=== PATIENT | male | born 1985 | race Caucasian/White ===

== ENCOUNTER 2025-02-14 20:54 | Emergency (ER) | payer SELFPAY ==
[2025-02-14] MEDS ORDERED: predniSONE 20 MG TAB ONE (21:21)
[2025-02-14] MEDS ORDERED: Azithromycin 250 MG TAB ONE (22:39)
[2025-02-14] MEDS ORDERED: Guaifenesin DM 100-10/5 ML UDCUP ONE (22:40)
== END 2025-02-14 22:47 | disposition home or self-care (01) ==
LOC: BURERS 20:54
DX: J20.9 Acute bronchitis, unspecified (principal); J02.9 Acute pharyngitis, unspecified
CPT/HCPCS: 71046; J7512; J7620

== ENCOUNTER 2025-06-30 12:45 | Emergency (ER) | payer SELFPAY ==
[2025-06-30] MEDS ORDERED: Sulfameth/Trimethoprim DS 800-160mg TAB ONE ×2 (13:28→13:29)
== END 2025-06-30 13:32 | disposition home or self-care (01) ==
LOC: BURERS 12:45
DX: L03.012 Cellulitis of left finger (principal)
CPT/HCPCS: 99283